=== PATIENT | male | born 1990 | race Caucasian/White ===

== ENCOUNTER 2018-04-11 15:39 | Emergency (ER) | payer SELFPAY ==
[2018-04-11] MEDS ORDERED: Albuterol/Ipratropium 3.0-0.5 MG/3 ML Neb Soln NEB ONE (15:47)
--- NOTE | 2018-04-11 15:52 | EDM.PDOC ---
ED HPI GENERAL MEDICAL PROBLEM - General Chief Complaint: Respiratory Problem Stated Complaint: SOB Time Seen by Provider: 04/11/18 15:48 Source of Information: Reports: Patient History Limitations: Reports: No Limitations - History of Present Illness INITIAL COMMENTS - FREE TEXT/NARRATIVE: Presents with productive cough and shortness of breath x 4 days. No h/o chronic lung disease. Seen at [facility] [place], was told he was having a panic attack, patient AMA'd. Denies chest pain. Fever first 2 days of illness. Duration: Day(s): (4) Associated Symptoms: Reports: Other (left mid back pain) - Related Data Allergies Allergy/AdvReac Type Severity Reaction Status Date / Time No Known Allergies Allergy Verified 04/11/18 15:43 Home Meds: Home Meds Albuterol [Ventolin HFA] 2 puff INH Q4H PRN #1 inhaler 04/11/18 [Rx] Azithromycin [Zithromax] 250 mg PO DAILY 5 Days #6 tab 04/11/18 [Rx] Inhaler, Assist Devices [Space Chamber Plus] 1 each MC Q4H PRN #1 spacer [Rx] predniSONE [Prednisone] 60 mg PO DAILY #15 tablet 04/11/18 [Rx] Past Medical History - Past Health History Medical/Surgical History: Denies Medical/Surgical History Social & Family History - Tobacco Use Smoking Status *Q: Current Every Day Smoker Tobacco Use Within Last Twelve Months: Cigarettes Years of Tobacco use: 10 Packs/Tins Daily: 1 Used Tobacco, but Quit: No - Caffeine Use Caffeine Use: Reports: Coffee Caffeine Use Comment: Couple cups in the AM - Alcohol Use Alcohol Use History: Yes Alcohol Use Frequency: Rarely - Recreational Drug Use Recreational Drug Use: No ED ROS GENERAL - Review of Systems Review Of Systems: ROS reveals no pertinent complaints other than HPI. ED EXAM, GENERAL - Physical Exam Exam: See Below Exam Limited By: No Limitations General Appearance: Alert, WD/WN, No Apparent Distress Ears: Normal External Exam Nose: Normal Inspection Throat/Mouth: Normal Inspection, Normal Lips, Normal Oropharynx, Normal Voice, No Airway Compromise Head: Atraumatic, Normocephalic Neck: Supple Respiratory/Chest: No Respiratory Distress, Decreased Breath Sounds, Wheezing Cardiovascular: Regular Rate, Rhythm, No Murmur (Male) Exam: Deferred Rectal (Males) Exam: Deferred Back Exam: Other (tenderness to left mid back) Extremities: Normal Range of Motion Neurological: Alert, Normal Cognition, No Motor/Sensory Deficits Psychiatric: Normal Affect, Normal Mood Skin Exam: Warm, Dry, Intact EKG INTERPRETATION EKG Date: 04/11/18 Time: 15:58 Rhythm: NSR Rate (Beats/Min): 57 Plain: Normal P-Wave: Present QRS: Normal ST-T: Normal QT: Normal Course - Vital Signs Last Recorded V/S: Last Vital Signs Temp 36.4 C 04/11/18 15:45 Pulse 70 04/11/18 15:45 Resp 18 04/11/18 15:45 BP 103/61 04/11/18 15:45 Pulse Ox 100 04/11/18 15:45 - Orders/Labs/Meds Orders: Active Orders 24 hr Category Date Time Status EKG Documentation Completion [RC] ASDIRECTED Care 04/11/18 15:43 Active RT Aerosol Therapy [RC] ASDIRECTED Care 04/11/18 15:47 Active CXR [Chest 2V] [CR] Stat Exams 04/11/18 15:43 Taken INFLUENZA A+B AG SCREEN [RM] Stat Lab 04/11/18 16:05 Received Ibuprofen [Motrin] Med 04/11/18 16:38 Once 600 mg PO ONETIME ONE EKG 12 Lead [EK] Stat Ther 04/11/18 15:43 Ordered Labs: Laboratory Tests 04/11/18 04/11/18 Range/Units 16:05 16:05 WBC 9.9 (4.5-12.0) X10-3/uL RBC 5.32 (4.30-5.75) x10(6)uL Hgb 17.0 H (11.5-15.5) g/dL Hct 49.2 (30.0-51.3) % MCV 92.6 (80-96) fL MCH 32.0 (27.7-33.6) pg MCHC 34.5 (32.2-35.4) g/dL RDW 13.4 (11.5-15.5) % Plt Count 208 (125-369) X10(3)uL MPV 8.8 (7.4-10.4) fL Neut % (Auto) 62.8 (46-82) % Lymph % (Auto) 26.8 (13-37) % [place] % (Auto) 7.5 (4-12) % Eos % (Auto) 2 (1.0-5.0) % Baso % (Auto) 1 (0-2) % Neut # (Auto) 6.2 (1.6-8.3) # Lymph # (Auto) 2.7 (0.6-5.0) # [place] # (Auto) 0.7 (0.0-1.3) # Eos # (Auto) 0.2 (0.0-0.8) # Baso # (Auto) 0.1 (0.0-0.2) # Sodium 142 (135-145) mmol/L Potassium 3.9 (3.5-5.3) mmol/L Chloride 103 (100-110) mmol/L Carbon Dioxide 28 (21-32) mmol/L BUN 13 (7-18) mg/dL Creatinine 1.1 (0.70-1.30) mg/dL Est Cr Clr Drug Dosing 96.22 mL/min Estimated GFR (MDRD) > 60 (>60) BUN/Creatinine Ratio 11.8 (9-20) Glucose 88 (80-116) mg/dL Calcium 9.6 (8.6-10.2) mg/dL Total Bilirubin 0.5 (0.1-1.3) mg/dL AST 15 (5-25) IU/L ALT 19 (12-36) U/L Alkaline Phosphatase 96 (56-112) IU/L Total Protein 8.2 H (6.0-8.0) g/dL Albumin 4.3 (3.5-5.2) g/dL Globulin 3.9 g/dL Albumin/Globulin Ratio 1.1 Meds: Medications Discontinued Medications Generic Name Dose Route Start Last Admin Trade Name Freq PRN Reason Stop Dose Admin Albuterol/Ipratropium 3 ml 04/11/18 15:47 04/11/18 16:05 Duoneb 3.0-0.5 Mg/3 Ml NEB 04/11/18 15:48 3 ml ONETIME ONE Administration - Radiology Interpretation Free Text/Narrative:: CXR: NAD - Re-Assessments/Exams Free Text/Narrative Re-Assessment/Exam: 04/11/18 16:40 Symptoms have improved. Lungs CTA with good aeration on re-exam after Duoneb. Departure - Departure Time of Disposition: 16:42 Disposition: Home, Self-Care 01 Condition: Good Clinical Impression: Bronchitis, Bronchospasm - Discharge Information *PRESCRIPTION DRUG MONITORING PROGRAM REVIEWED*: No *COPY OF PRESCRIPTION DRUG MONITORING REPORT IN PATIENT DARLIN: Not Applicable Prescriptions: Albuterol [Ventolin HFA] 2 puff INH Q4H PRN #1 inhaler PRN Reason: Shortness Of Breath Azithromycin [Zithromax] 250 mg PO DAILY 5 Days #6 tab Inhaler, Assist Devices [Space Chamber Plus] 1 each MC Q4H PRN #1 spacer PRN Reason: Shortness Of Breath predniSONE [Prednisone] 60 mg PO DAILY #15 tablet Instructions: Upper Respiratory Infection, Adult, [id number], How to Use a Metered Dose Inhaler, Bronchospasm, Adult, [id number] Forms: ED Department Discharge Additional Instructions: Fill prescriptions for Ventolin inhaler, Prednisone and Zithromax and take as directed. Follow up with your primary physician in 2-3 days. Return to the ER if symptoms worsen. - My Orders Last 24 Hours: My Active Orders 04/11/18 15:43 EKG Documentation Completion [RC] ASDIRECTED CXR [Chest 2V] [CR] Stat EKG 12 Lead [EK] Stat 04/11/18 15:47 RT Aerosol Therapy [RC] ASDIRECTED 04/11/18 16:05 INFLUENZA A+B AG SCREEN [RM] Stat 04/11/18 16:38 Ibuprofen [Motrin] 600 mg PO ONETIME ONE - Assessment/Plan Last 24 Hours: My Active Orders 04/11/18 15:43 EKG Documentation Completion [RC] ASDIRECTED CXR [Chest 2V] [CR] Stat EKG 12 Lead [EK] Stat 04/11/18 15:47 RT Aerosol Therapy [RC] ASDIRECTED 04/11/18 16:05 INFLUENZA A+B AG SCREEN [RM] Stat 04/11/18 16:38 Ibuprofen [Motrin] 600 mg PO ONETIME ONE
[2018-04-11] MEDS ORDERED: Ibuprofen 600 MG Tab PO ONE (16:38)
--- NOTE | 2018-04-14 11:06 | CR ---
INDICATION: Short of breath. CHEST: PA and lateral views of the chest were obtained 04/11/2018 and revealed the heart and mediastinum to be unremarkable. There is suggestion of a minimal dextroconvex scoliosis of the lower thoracic spine. An active infiltrate or effusion was not identified. Mildly flattened diaphragm leaves and slightly prominent AP diameter noted, raising question of a mild degree of obstructive airway disease - correlate clinically. IMPRESSION: No definite active disease; however, minimal scoliosis and possible mild hyperaeration are suggested. Correlate clinically. MTDD
== END 2018-04-11 16:58 | disposition home or self-care (01) ==
LOC: FB.ED 15:39
DX: J98.01 Acute bronchospasm (principal); J40 Bronchitis, not specified as acute or chronic; F17.210 Nicotine dependence, cigarettes, uncomplicated
CPT/HCPCS: 36415; 71046; 80053; 85025; 87804; 93005; 94640; 99284; A9270; 93010; J7620-GY